=== PATIENT | male | born 1960 | race Caucasian/White ===

== ENCOUNTER 2016-12-26 10:43 | Observation (INO) | payer BC ==
[2016-12-26] MEDS ORDERED: ONDANSETRON 4 MG/2 ML VIAL IVP STA (11:37)
[2016-12-26] MEDS ORDERED: SODIUM CHLORIDE 0.9% 1,000 ML IV STA (11:37)
[2016-12-26] MEDS ORDERED: DICYCLOMINE 10 MG/ML 2 ML AMP IM STA (11:37)
[2016-12-26 11:45] LABS: Basophils % (A) 0 %; CH 29.7; Eosinophils % (A) 0 %; HCT 53.6 % (39.0-53.0); HDW 2.46; HGB 17.6 gm/dL (13.0-17.5); Luc # (Auto) 0.07; Luc % (Auto) 1; Lymphocytes # (A) 0.7 k/uL (1.0-4.8); Lymphocytes % (A) 5 %; MCH 29.8 pg (25.0-35.0); MCHC 32.9 g/dL (31.0-37.0); MCV 90.6 fL (80.0-100.0); Mean Platelet Volume 8.4; Monocytes # (A) 0.5 k/uL (0-1.0); Monocytes % (A) 4 %; Neutrophils # (A) 12.1 k/uL (1.3-7.7); Neutrophils % (A) 91 %; RBC 5.92 m/uL (4.30-5.90); RDW 12.8 % (11.5-15.5); WBC 13.3 k/uL (3.8-10.6); WBC (Perox) 13.95
--- NOTE | 2016-12-26 12:11 | XR ---
Abdomen HISTORY: Nausea vomiting and diarrhea Frontal View of the abdomen on 2 images Postop changes are noted at the gastroesophageal junction. Surgical clips are present in the pelvis. There are likely phleboliths. Air-filled loops of small and large bowel are present. Lung bases are c lear. No pneumoperitoneum. IMPRESSION: Possible ileus or enteritis, follow-up as indicated bowel obstruction is suspected.
[2016-12-26 12:12] LABS: Calcium 11.5 mg/dL (8.4-10.2); Potassium 4.9 mmol/L (3.5-5.1); Total Bilirubin 0.7 mg/dL (0.2-1.3); Total Protein 9.5 g/dL (6.3-8.2)
[2016-12-26] MEDS ORDERED: SODIUM CHLORIDE 0.9% 500 ML IV STA ×2 (12:17→12:33)
[2016-12-26] MEDS ORDERED: ONDANSETRON 4 MG/2 ML VIAL IVP PRN (12:48)
[2016-12-26] MEDS ORDERED: NALOXONE 0.4 MG/ML 1 ML VIAL IV PRN (12:48)
--- NOTE | 2016-12-26 12:48 | ED ---
Nausea/Vomiting/Diarrhea HPI - General Source: EMS, RN notes reviewed Mode of arrival: EMS Limitations: no limitations <Ivy Chiu - Last Filed: 12/26/16 12:43> <Frantz Nelson - Last Filed: 12/26/16 12:53> - General Chief complaint: Nausea/Vomiting/Diarrhea Stated complaint: Flu Symptoms Time Seen by Provider: 12/26/16 11:21 - History of Present Illness Initial comments: 56-year-old male presents to the emergency department with a chief complaint nausea vomiting and diarrhea. Patient has had this since last night. Patient states the symptoms just continue. Patient states he's been unable to keep anything down. Patient states he has been unable to tolerate water. Patient states just continued to have the symptoms that he thought that he should be seen. Patient states when he tried to get up he does notice that he has some lightheadedness as well. Patient states that he was concerned due to his continued nausea vomiting diarrhea so he thought that he should be evaluated. Patient denies any recent fever, chills, shortness of breath, chest pain, back pain, abdominal pain, numbness or tingling, dysuria or hematuria, constipation , headaches or visual changes, or any other current symptoms. (Ivy Chiu) - Related Data Home Medications Medication Instructions Recorded Confirmed Losartan Potassium [Losartan 100 mg PO QAM 05/16/14 12/26/16 Potassium] amLODIPine [Norvasc] 10 mg PO QAM 05/16/14 12/26/16 Ranitidine HCl [Zantac] 75 mg PO BID PRN 12/26/16 12/26/16 Allergies Allergy/AdvReac Type Severity Reaction Status Date / Time cephalexin monohydrate Allergy Nausea & Verified 12/26/16 11:20 [From Keflex] Vomiting ciprofloxacin [From Cipro] Allergy Nausea & Verified 12/26/16 11:20 Vomiting ciprofloxacin HCl Allergy Nausea & Verified 12/26/16 11:20 [From Cipro] Vomiting erythromycin base Allergy Nausea & Verified 12/26/16 11:20 [Erythromycin Base] Vomiting morphine Allergy TREMORS Verified 12/26/16 11:20 Review of Systems ROS Other: All systems not noted in ROS Statement are negative. <Ivy Chiu - Last Filed: 12/26/16 12:43> ROS Other: All systems not noted in ROS Statement are negative. <OmarFrantz - Last Filed: 12/26/16 12:53> ROS Statement: Those systems with pertinent positive or pertinent negative responses have been documented in the HPI. Past Medical History Past Medical History: Cancer, GERD/Reflux, GI Bleed, Hypertension Additional Past Medical History / Comment(s): STOMACH ULCERS (HAD BLOOD TRANSFUSIONS). PROSTATE CA History of Any Multi-Drug Resistant Organisms: None Reported Past Surgical History: Hernia Repair, Orthopedic Surgery, Prostate Surgery Additional Past Surgical History / Comment(s): PROSTATECTOMY. HIATAL HERNIA. JGAJIT IN LEFT FEMUR. Past Anesthesia/Blood Transfusion Reactions: No Reported Reaction Past Psychological History: No Psychological Hx Reported Smoking Status: Never smoker Past Alcohol Use History: Rare Past Drug Use History: None Reported - Past Family History Father Family Medical History: Cancer Additional Family Medical History / Comment(s): SKIN CA, VALVE REPLACEMENT Mother Family Medical History: Cancer Additional Family Medical History / Comment(s): COLON CA <Ivy Chiu - Last Filed: 12/26/16 12:43> General Exam Limitations: no limitations <Ivy Chiu - Last Filed: 12/26/16 12:43> <OmarFrantz - Last Filed: 12/26/16 12:53> - General Exam Comments Initial Comments: General: The patient is awake and alert, in no distress, and does not appear acutely ill. Eye: Pupils are equal, round and reactive to light, extra-ocular movements are intact; there is normal conjunctiva bilaterally. No signs of icterus. Ears, nose, mouth and throat: There are moist mucous membranes and no oral lesions. Neck: The neck is supple, there is no tenderness. Cardiovascular: There is a regular rate and rhythm. No murmur, rub or gallop is appreciated. Respiratory: Lungs are clear to auscultation, respirations are non-labored, breath sounds are equal. No wheezes, stridor, rales, or rhonchi. Gastrointestinal: Soft, non-distended, non-tender abdomen without masses or organomegaly noted. There is no rebound or guarding present. No CVA tenderness. Bowel sounds are unremarkable. Musculoskeletal: Normal ROM, no tenderness, There is no pedal edema. There is no calf tenderness or swelling. Sensation intact. Pulses equal bilaterally 2+. Neurological: CN II-XII intact, There are no obvious motor or sensory deficits. Coordination appears grossly intact. Speech is normal. Skin: Skin is warm and dry and no rashes or lesions are noted. Psychiatric: Cooperative, appropriate mood & affect, normal judgment. (Ivy Chiu) Medical Decision Making - Lab Data Result diagrams: 12/26/16 11:00 12/26/16 11:00 - Radiology Data Radiology results: report reviewed, image reviewed <Ivy Chiu - Last Filed: 12/26/16 12:43> - Lab Data Result diagrams: 12/26/16 11:00 12/26/16 11:00 <Frantz Nelson - Last Filed: 12/26/16 12:53> - Medical Decision Making 56-year-old male presents for nausea vomiting diarrhea. When reviewing the patient's blood work she does appear to have acute kidney injury most likely due to dehydration at this time. Patient is still tachycardic even after a liter of fluids. We'll give the patient another liter. He will admit due to the dehydration and acute kidney injury most likely from a gastroenteritis. This is discussed with the patient and he is in agreement with plan. (Ivy Chiu ) I saw this patient in conjunction with the physician equal opportunity assistant. I performed independent history and physical exam. Agree with case management. (Frantz Nelson) - Lab Data Lab Results 12/26/16 12/26/16 Range/Units 11:00 11:00 WBC 13.3 H (3.8-10.6) k/uL RBC 5.92 H (4.30-5.90) m/uL Hgb 17.6 H (13.0-17.5) gm/dL Hct 53.6 H (39.0-53.0) % MCV 90.6 (80.0-100.0) fL MCH 29.8 (25.0-35.0) pg MCHC 32.9 (31.0-37.0) g/dL RDW 12.8 (11.5-15.5) % Plt Count 351 (150-450) k/uL Neutrophils % 91 % Lymphocytes % 5 % Monocytes % 4 % Eosinophils % 0 % Basophils % 0 % Neutrophils # 12.1 H (1.3-7.7) k/uL Lymphocytes # 0.7 L (1.0-4.8) k/uL Monocytes # 0.5 (0-1.0) k/uL Eosinophils # 0.0 (0-0.7) k/uL Basophils # 0.0 (0-0.2) k/uL Sodium 147 H (137-145) mmol/L Potassium 4.9 (3.5-5.1) mmol/L Chloride 102 (98-107) mmol/L Carbon Dioxide 23 (22-30) mmol/L Anion Gap 22 mmol/L BUN 39 H (9-20) mg/dL Creatinine 2.80 H (0.66-1.25) mg/dL Est GFR (MDRD) Af Amer 28 (>60 ml/min/1.73 sqM) Est GFR (MDRD) Non-Af 23 (>60 ml/min/1.73 sqM) Glucose 182 H (74-99) mg/dL Calcium 11.5 H (8.4-10.2) mg/dL Total Bilirubin 0.7 (0.2-1.3) mg/dL AST 22 (17-59) U/L ALT 42 (21-72) U/L Alkaline Phosphatase 117 (38-126) U/L Total Protein 9.5 H (6.3-8.2) g/dL Albumin 4.8 (3.5-5.0) g/dL Amylase 77 (30-110) U/L Lipase 70 (23-300) U/L Disposition Time of Disposition: 12:47 Decision Date: 12/26/16 Decision Time: 12:47 <Ivy Chiu - Last Filed: 12/26/16 12:43> <Frantz Nelson - Last Filed: 12/26/16 12:53> Clinical Impression: Dehydration, FOREIGN (acute kidney injury), Hypernatremia, Gastroenteritis Disposition: ADMITTED IP TO THIS [facility] Condition: Stable Referrals: Aracelis Cosme III, MD [Primary Care Provider] - 1-2 days
[2016-12-26] MEDS ORDERED: FAMOTIDINE 20 MG TAB PO PRN (12:49)
[2016-12-26 13:54] VITALS: RESP 18
[2016-12-26] MEDS: SODIUM CHLORIDE 0.9% 1,000 ML IV SCH (14:47)
[2016-12-26] MEDS ORDERED: TEMAZEPAM 15 MG CAP PO PRN (20:01)
[2016-12-26] MEDS ORDERED: ALPRAZolam 0.25 MG TAB PO PRN (20:01)
[2016-12-26 20:20] LABS: Prothrombin Time 9.8 sec (9.0-12.0)
[2016-12-26] MEDS ORDERED: FAMOTIDINE 20 MG TAB PO SCH (21:00)
[2016-12-26] MEDS: PANTOPRAZOLE 40 MG/10 ML VIAL IVP SCH (21:02)
[2016-12-26] MEDS: HEPARIN SODIUM,PORCINE 5,000 UNIT/ML 1 ML VIAL SQ SCH (21:02)
[2016-12-26 21:16] LABS: Appearance,Urine Clear (Clear); Bilirubin,Urine Negative (Negative); Glucose,Urine (UA) Negative (Negative); Ketones,Urine Negative (Negative); Leukocyte Esterase,Urine Negative (Negative); Nitrite,Urine Negative (Negative); Protein,Urine Trace (Negative); Specific Gravity,Urine 1.017 (1.001-1.035); UA Billing (MACRO vs. MICRO) CHEM; Urobilinogen,Urine <2.0 mg/dL (<2.0)
[2016-12-27] MEDS: SODIUM CHLORIDE 0.9% 1,000 ML IV SCH ×2 (06:42→09:05)
[2016-12-27 08:14] LABS: Basophils # (A) 0.1 k/uL (0-0.2); Basophils % (A) 1 %; CH 30.3; CHCM 32.9; Eosinophils # (A) 0.7 k/uL (0-0.7); Eosinophils % (A) 5 %; HCT 42.7 % (39.0-53.0); HDW 2.45; Luc # (Auto) 0.23; Luc % (Auto) 2; Lymphocytes # (A) 1.5 k/uL (1.0-4.8); Lymphocytes % (A) 10 %; MCH 30.1 pg (25.0-35.0); MCHC 32.5 g/dL (31.0-37.0); MCV 92.6 fL (80.0-100.0); Mean Platelet Volume 8.8; Monocytes # (A) 0.9 k/uL (0-1.0); Monocytes % (A) 6 %; Neutrophils % (A) 77 %; RBC 4.61 m/uL (4.30-5.90); WBC 14.3 k/uL (3.8-10.6); WBC (Perox) 14.69
[2016-12-27 08:16] LABS: HGB 13.9 gm/dL (13.0-17.5)
[2016-12-27 08:30] LABS: ALT 37 U/L (21-72); AST 18 U/L (17-59); Alkaline Phosphatase 78 U/L (38-126); Anion Gap 9 mmol/L; Blood Urea Nitrogen 26 mg/dL (9-20); Calcium 8.8 mg/dL (8.4-10.2); Carbon Dioxide 25 mmol/L (22-30); Chloride 111 mmol/L (98-107); Glucose 97 mg/dL (74-99); Non-African American GFR(MDRD) >60 (>60 ml/min/1.73 sqM); Potassium 4.2 mmol/L (3.5-5.1); Sodium 145 mmol/L (137-145); Total Bilirubin 0.7 mg/dL (0.2-1.3); Total Protein 6.8 g/dL (6.3-8.2)
[2016-12-27] MEDS: HEPARIN SODIUM,PORCINE 5,000 UNIT/ML 1 ML VIAL SQ SCH (09:00)
[2016-12-27] MEDS ORDERED: LOSARTAN 50 MG TAB PO SCH (09:00)
[2016-12-27] MEDS: PANTOPRAZOLE 40 MG/10 ML VIAL IVP SCH (09:00)
[2016-12-27] MEDS ORDERED: amLODIPine 10 MG TAB PO SCH (09:00)
--- NOTE | 2016-12-27 10:26 | HP ---
DATE OF ADMISSION: DATE OF SERVICE: 12/26/2016 Chief complaints are nausea, vomiting, diarrhea. HISTORY OF PRESENT ILLNESS: This 56-year-old gentleman with a past medical history of multiple medical problems, atrial fibrillation, history of GERD, history of GI bleed, hypertension, history of stomach ulcers, history of transfusions, hernia repair being followed by Dr. Cosme in the outpatient setting, was not feeling well since today, this morning. The patient nausea, vomiting and multiple episodes of diarrhea. Patient was so weak, patient had multiple episodes of vomiting, patient is unable to keep anything down. Patient unable to tolerate even water. Patient came to [facility], admitted for further evaluation and treatment. Admission evaluated showed a white count of 13.3 and hemoglobin of 17.6, sodium 146 and creatinine was 2.80. The baseline creatinine was 0.8 previously. There is no history of fever, rigors, chills. No history of headaches, loss of consciousness, or seizures. A viral syndrome is also considered. Patient not on antibiotics recently. Calcium is 7.5. PAST MEDICAL HISTORY: History of atrial fibrillation, history of GERD, history of GI bleed, history of stomach ulcers, history of hernia repair, history of degenerative joint disease, history of prostate surgery and prostatectomy. Medications prior to admission include home medications: 1. Norvasc 10 mg q.a.m. 2. Zantac 75 mg p.o. b.i.d. 3. Losartan 100 mg q.a.m. Allergies are KEFLEX, CIPRO, ERYTHROMYCIN, MORPHINE. FAMILY HISTORY: History of cancer, skin cancer and valve replacement. SOCIAL HISTORY: No history of smoking, occasional alcohol intake. REVIEW OF SYSTEMS: ENT: No diminished hearing. No diminished vision. CARDIOVASCULAR SYSTEMS: No angina or palpitations. RESPIRATORY: No cough. GI: As mentioned earlier. : No dysuria. NERVOUS SYSTEM: No numbness or weakness. ALLERGY/IMMUNOLOGY: No asthma or hayfever. MUSCULOSKELETAL: As mentioned earlier. HEMATOLOGY/ONCOLOGY: No history of anemia. ENDOCRINE: No history of diabetes or hypothyroidism. CONSTITUTIONAL: As mentioned earlier. DERMATOLOGY: Negative. RHEUMATOLOGY: Negative. PSYCHIATRY: As mentioned earlier. PHYSICAL EXAM: The patient is alert and oriented x3. Pulse is 120, blood pressure 132/91, respirations 18, temperature is 98.2, pulse ox 94% on room air. HEENT: Conjunctivae normal, oral mucosa moist. NECK: No jugular venous distension, no carotid bruit, no lymph node enlargement. CARDIOVASCULAR: S1, S2, muffled, no S3, no S4. RESPIRATORY: Breath sounds diminished at the bases, a few scattered rhonchi, no crackles. Abdomen is soft. Mild diffuse discomfort, no guarding, no rigidity, no mass palpable. EXTREMITIES: Legs no edema, no swelling. NERVOUS SYSTEM: Higher functions as mentioned, moves all 4 limbs, no focal motor or sensory deficits. LYMPHATICS: No lymph node enlargement in the neck, axilla or groin. SKIN: No ulcers, rash or bleeding. Labs are WBC 13.3, hemoglobin is 17.6, sodium 147, creatinine 2.80, calcium 11.5. ASSESSMENT: 1. Nausea, vomiting and diarrhea, possible acute viral syndrome and viral gastroenteritis. 2. Acute renal failure, possible prerenal, secondary to dehydration and acute tubular necrosis. 3. Hyponatremia, secondary to dehydration. 4. Hypocalcemia secondary to dehydration. 5. Increased WBC. 6. Increased hemoglobin. 7. History of atrial fibrillation. 8. History of gastroesophageal reflux disease. 9. History of gastrointestinal bleed. 10. History of hypertension. 11. History of stomach ulcers and transfusion. 12. History of prostate cancer and prostatectomy. 13. History of cardioversion for atrial fibrillation. RECOMMENDATION AND DISCUSSION: In this 56-year-old gentleman who presented with multiple complex medical issues, will monitor the patient closely. Continue with the current medication and symptomatic treatment. Will initiate IV fluids and consider line of management. Otherwise, would keep the patient n.p.o. Will check stool C. diff and as well as norovirus, isolation until the diarrhea better. Influenza has been checked. Prognosis guarded because of multiple complex medical issues. Will also check influenza as well. Guarded prognosis. Further recommendations to follow. A copy of dictation will be forwarded to Dr. Cosme who is the primary care physician.
[2016-12-27 14:56] VITALS: BMI 29.0
[2016-12-27 15:29] VITALS: BP 121/80; PULSE 99; TEMP 98.3
--- NOTE | 2016-12-28 10:23 | DS ---
DATE OF ADMISSION: 12/26/2016 DATE OF DISCHARGE: 12/27/2016 FINAL DIAGNOSES: 1. Nausea, with diarrhea, possibly acute viral syndrome and viral gastroenteritis, improving. 2. Acute renal failure, possible prerenal, secondary to dehydration as well as acute tubular necrosis. 3. Hyponatremia secondary to dehydration and hypovolemic. 4. Hypercalcemia secondary to dehydration. 5. Increased WBC. 6. Increased hemoglobin, possibly secondary to dehydration. 7. History of atrial fibrillation. 8. History of gastroesophageal reflux disease. 9. History of gastrointestinal bleed. 10. Hypertension. 11. History of stomach ulcers and transfusion. 12. History of prostate cancer and prostatectomy. 13. History of cardioversion for atrial fibrillation. DISCHARGE DISPOSITION: Patient will be discharged in a stable condition with guarded prognosis. HISTORY OF PRESENT ILLNESS: This is a 56-year-old gentleman with a past medical history of multiple medical problems, was admitted with nausea and diarrhea and features of possible viral gastroenteritis. The influenza is negative and C. diff is also negative. Patient was treated symptomatically. Creatinine improved from 2.8 to 1.02 with IV fluids. White count is 14.3. Cultures are negative so far. The patient is keen on going home. On exam, vitals are stable. CARDIOVASCULAR SYSTEM: S1, S2, muffled. Abdomen is soft. NERVOUS SYSTEM: No focal deficits. DISCHARGE ADVICE: 1. Diet is soft as tolerated. 2. Otherwise activity limited until followup. 3. Follow up with Dr. Cosme in 2 to 3 days with CBC, BMP. Medications are: 1. Tylenol 500 mg q.6 p.r.n. 2. Losartan 100 mg p.o. q.a.m. 3. Zantac 75 mg p.o. b.i.d. 4. Norvasc 10 mg p.o. q.a.m. Once again, the patient will be discharged in a stable condition with guarded prognosis.
== END 2016-12-27 16:20 | disposition home or self-care (01) ==
LOC: EC 10:43 → 5MS5E 12:52 → INTOOBSV 12:52
PROVIDERS: ADMIT Internal Medicine; ATTEND Internal Medicine
DX: R11.2 Nausea with vomiting, unspecified (principal); R19.7 Diarrhea, unspecified; E86.0 Dehydration; E86.1 Hypovolemia; N17.0 Acute kidney failure with tubular necrosis; E87.0 Hyperosmolality and hypernatremia; E87.1 Hypo-osmolality and hyponatremia; E83.51 Hypocalcemia; E83.52 Hypercalcemia; I10 Essential (primary) hypertension; D72.829 Elevated white blood cell count, unspecified; D58.2 Other hemoglobinopathies; I48.91 Unspecified atrial fibrillation; K21.9 Gastro-esophageal reflux disease without esophagitis; Z85.46 Personal history of malignant neoplasm of prostate; Z88.5 Allergy status to narcotic agent; Z88.1 Allergy status to other antibiotic agents; Z79.899 Other long term (current) drug therapy; Z87.11 Personal history of peptic ulcer disease; Z80.0 Family history of malignant neoplasm of digestive organs
CPT/HCPCS: 99285; 96372; 96374; 96361; 36415; 80053 ×2; 82150; 83690; 83735; 85025 ×2; 85610; 81003; 80306; 80299; 87502; 74000; G0378 ×2; J0500; J1644 ×2; J2405; C9113 ×2; 87324; 96375; 96376

== ENCOUNTER → 2020-03-31 | Outpatient (CLI) | payer BC | END | disposition home or self-care (01) | LOC: LABWHC1 10:43 | PROVIDERS: ATTEND Surgery | DX: Z11.59 Encounter for screening for other viral diseases (principal) | CPT/HCPCS: 87635 ==

== ENCOUNTER → 2020-04-03 | Day surgery (SDC) | payer BC ==
[2020-04-01 09:05] VITALS: BMI 30.6
[~2020-04-03] MED LIST: LACTATED RINGERS 1,000 ML IV SCH; LIDOCAINE 1% (10MG/ML) FOR IV START INTRADERMA ONE; METOPROLOL TARTRATE 50 MG TAB PO STA
[2020-04-03 08:25] VITALS: RESP 16; TEMP 97
[2020-04-03 10:50] LABS: African American GFR (CKD) >90 (>60 ml/min/1.73 sqM); Anion Gap 10 mmol/L; Blood Urea Nitrogen 19 mg/dL (9-20); Calcium 9.5 mg/dL (8.4-10.2); Carbon Dioxide 24 mmol/L (22-30); Chloride 105 mmol/L (98-107); Glucose 106 mg/dL (74-99); Non-African American GFR(CKD) 87 (>60 ml/min/1.73 sqM); Potassium 3.8 mmol/L (3.5-5.1); Sodium 139 mmol/L (137-145)
[2020-04-03 10:55] VITALS: BP 120/78; PULSE 105
--- NOTE | 2020-04-03 12:32 | P.CRDCN ---
History of Present Illness History of present illness: Please see full dictation by nurse practitioner Patient admitted for colonoscopy and was found to be in A. fib with RVR Patient evaluated with nurse practitioner Impression Atrial fibrillation with RVR, narrow QRS Mildly enlarged RA and RV without tricuspid regurgitation History of hypertension on combination of amlodipine and losartan Elevated LDL, not on any medications Denies diabetes smoking or any significant alcohol use ELISABET VASC core at this time appears to be 1 LV function is normal Suggest Rate controlled with metoprolol succinate 50 g by mouth daily in the morning Continue antihypertensives in the evening ELIQUIS 5 mg twice daily for now until further evaluation of atrial fibrillation Future plan electrical cardioversion to see there is any improvement in his symptoms His main symptom is he gets tired when he climbs 12 flights of stairs, mildly short of breath Denies any palpitations Past Medical History Past Medical History: Atrial Fibrillation, Cancer, GERD/Reflux, GI Bleed, Hyperlipidemia, Hypertension, Prostate Disorder Additional Past Medical History / Comment(s): hx hiatal hernia, STOMACH ULCERS, hx PROSTATE cancer, varicose veins bilaterally, hx anemia, History of Any Multi-Drug Resistant Organisms: None Reported Past Surgical History: Hernia Repair, Orthopedic Surgery, Prostate Surgery Additional Past Surgical History / Comment(s): PROSTATECTOMY, HIATAL HERNIA repair, titanium JAGJIT/screws IN LEFT FEMUR-, JAM/CARDIOVERSION, Past Anesthesia/Blood Transfusion Reactions: No Reported Reaction Additional Past Anesthesia/Blood Transfusion Reaction / Comment(s): Pt has received blood in the past without reaction. Smoking Status: Never smoker - Past Family History Father Family Medical History: Cancer Additional Family Medical History / Comment(s): SKIN CA, VALVE REPLACEMENT Mother Family Medical History: Cancer Additional Family Medical History / Comment(s): COLON CA. Medications and Allergies Home Medications Medication Instructions Recorded Confirmed Type Losartan Potassium 100 mg PO QAM 05/16/14 04/03/20 History amLODIPine [Norvasc] 10 mg PO QAM 05/16/14 04/03/20 History Apixaban [Eliquis] 5 mg PO BID #60 tab 04/03/20 Rx Metoprolol Succinate (ER) [Toprol 50 mg PO DAILY #90 tab 04/03/20 Rx Xl] Allergies Allergy/AdvReac Type Severity Reaction Status Date / Time cephalexin monohydrate Allergy Nausea & Verified 04/03/20 08:12 [From Keflex] Vomiting ciprofloxacin [From Cipro] Allergy Nausea & Verified 04/03/20 08:12 Vomiting ciprofloxacin HCl Allergy Nausea & Verified 04/03/20 08:12 [From Cipro] Vomiting erythromycin base Allergy Nausea & Verified 04/03/20 08:12 [Erythromycin Base] Vomiting morphine Allergy TREMORS Verified 04/03/20 08:12 Physical Exam Vitals: Vital Signs Temp Pulse Resp BP Pulse Ox 04/03/20 10:50 105 H 16 120/78 96 04/03/20 08:15 97 F L 106 H 16 142/97 95 Intake and Output 04/02/20 04/03/20 04/03/20 22:59 06:59 14:59 Intake Total 400 Balance 400 Intake: IV 400 Other: Weight 108 kg Results 04/03/20 10:26 Comprehensive Metabolic Panel 04/03/20 Range/Units 10:26 Sodium 139 (137-145) mmol/L Potassium 3.8 (3.5-5.1) mmol/L Chloride 105 (98-107) mmol/L Carbon Dioxide 24 (22-30) mmol/L BUN 19 (9-20) mg/dL Creatinine 0.95 (0.66-1.25) mg/dL Glucose 106 H (74-99) mg/dL Calcium 9.5 (8.4-10.2) mg/dL Current Medications Generic Name Dose Route Start Last Admin Trade Name Freq PRN Reason Stop Dose Admin Lactated Ringer's 1,000 mls @ 20 mls/hr 04/03/20 05:39 04/03/20 08:26 Lactated Ringers IV 400 mls .Q24H ROBERT Administration Intake and Output 04/02/20 04/03/20 04/03/20 22:59 06:59 14:59 Intake Total 400 Balance 400 Intake: IV 400 Other: Weight 108 kg Patient Weight 04/04/20 06:59 Weight 108 kg 04/03/20 10:26
--- NOTE | 2020-04-03 12:35 | ECHOF ---
Referral Reason:afib MEASUREMENTS -------- HEIGHT: 190.5 cm WEIGHT: 108.0 kg BP: 142/97 IVSd: 1.2 cm (0.6 - 1.1) LVIDd: 3.6 cm (3.9 - 5.3) LVPWd: 1.3 cm (0.6 - 1.1) IVSs: 1.4 cm LVIDs: 2.9 cm LVPWs: 1.8 cm RVIDd: 4.2 cm (< 3.3) LAESV Index (A-L): 30.67 ml/m Ao Diam: 3.0 cm (2.0 - 3.7) AV Cusp: 1.6 cm (1.5 - 2.6) EPSS: 0.9 cm AR PHT: 519 ms RAP: 5.00 mmHg RVSP: 15.73 mmHg MV EF SLOPE: 46.16 mm/s (70 - 150) MV EXCURSION: 19.13 mm (> 18.000) FINDINGS -------- Atrial fibrillation. This was a technically adequate study. The left ventricular size is normal. There is mild concentric left ventricular hypertrophy. Overa ll left ventricular systolic function is low-normal with, an EF between 50 - 55 %. Left ventricular fillimg pressure cannot be estimated due to Atrial fibrillation. The right ventricle is mild to moderately enlarged. LA is midly dilated 29-33ml/m2. The right atrium is mildly enlarged. Interatrial and interventricular septum intact. There is mild aortic regurgitation. There is no evidence of aortic stenosis. There is trace mitral regurgitation. Mild tricuspid regurgitation present. There is no evidence of pulmonary hypertension. The right v entricular systolic pressure, as measured by Doppler, is 15.73mmHg. There is no pulmonic regurgitation present. The aortic root size is normal. IVC Not well visulized. CONCLUSIONS -------- 1. Atrial fibrillation. 2. This was a technically adequate study. 3. The left ventricular size is normal. 4. There is mild concentric left ventricular hypertrophy. 5. Overall left ventricular systolic function is low-normal with, an EF between 50 - 55 %. 6. Left ventricular fillimg pressure cannot be estimated due to Atrial fibrillation. 7. The right ventricle is mild to moderately enlarged. 8. LA is midly dilated 29-33ml/m2. 9. The right atrium is mildly enlarged. 10. Interatrial and interventricular septum intact. 11. There is mild aortic regurgitation. 12. There is no evidence of aortic stenosis. 13. There is trace mitral regurgitation. 14. Mild tricuspid regurgitation present. 15. There is no evidence of pulmonary hypertension. 16. The right ventricular systolic pressure, as measured by Doppler, is 15.73mmHg. 17. There is no pulmonic regurgitation present. 18. The aortic root size is normal. 19. IVC Not well visulized. GUARD LIEUTENANT: Chela Garcia RDCS
--- NOTE | 2020-04-03 15:15 | P.CRDCN ---
History of Present Illness History of present illness: HISTORY OF PRESENTING ILLNESS This is a pleasant 59-year-old male past medical history significant for paroxysmal atrial fibrillation, hypertension and dyslipidemia. In 2013 he underwent JAM cardioversion with Dr. Garcia. His initial cardioversion was successful however he did not follow-up in the office thereafter. We have been asked to evaluate him in the preoperative area. He came into the hospital to undergo colonoscopy with Dr. Coto. On arrival EKG was obtained revealing atrial fibrillation with rapid ventricular rates. His heart rate was fluctuating between 110 and 120. He denies symptoms of palpitations, chest pain, dizziness or shortness of breath. He states in 2014 he was asymptomatic with his A. fib is well. He states typically he has no symptoms of exertional chest discomfort however if he goes up more than 2 flights of stairs he becomes mildly short of breath. Current daily cardiac medications include amlodipine 10 mg daily and losartan 100 mg daily. REVIEW OF SYSTEMS At the time of my exam: CONSTITUTIONAL: Denies fever or chills. CARDIOVASCULAR: Denies chest pain, shortness of breath, orthopnea, PND or palpitations. RESPIRATORY: Denies cough. GASTROINTESTINAL: Denies abdominal pain, diarrhea, constipation, nausea or vomiting. MUSCULOSKELETAL: Denies myalgias. NEUROLOGIC: Denies numbness, tingling or weakness. ENDOCRINE: Denies fatigue, weight change, polydipsia or polyurina. GENITOURINARY: Denies burning, hematuria or urgency with micturation. HEMATOLOGIC: Denies history of anemia or bleeding. PHYSICAL EXAMINATION Blood pressure 120/78 heart rate 105 afebrile and maintaining oxygen saturation on room air. CONSTITUTIONAL: No apparent distress. HEENT: Head is normocephalic. Pupils are equal, round. Sclerae anicteric. Mucous membranes of the mouth are moist. No JVD. No carotid bruit. CHEST EXAMINATION: Lungs are clear to auscultation. No chest wall tenderness is noted on palpation or with deep breathing. HEART EXAMINATION: Irregular rate and rhythm. S1, S2 heard. No murmurs, gallops or rub. ABDOMEN: Soft, nontender. Positive bowel sounds. EXTREMITIES: 2+ peripheral pulses, no lower extremity edema and no calf tende rness. NEUROLOGIC EXAMINATION: Patient is awake, alert and oriented x3. ASSESSMENT Paroxysmal atrial fibrillation Hypertension PLAN Initiate toprol 50 mg daily and advised him to take his anti-hypertensives at bedtime. Initiate eliquis 5 mg BID for thromboembolic protection for possible cardiove rsion in the near future. Obtain 2D echocardiogram and doppler study to assess cardiac structure and function. Follow-up in the office with Dr. Watt in 2-3 weeks. Thank you kindly for this consultation. Nurse Practitioner note has been reviewed, I agree with a documented findings and plan of care. Patient was seen and examined. Past Medical History Past Medical History: Atrial Fibrillation, Cancer, GERD/Reflux, GI Bleed, Hyperlipidemia, Hypertension, Prostate Disorder Additional Past Medical History / Comment(s): hx hiatal hernia, STOMACH ULCERS, hx PROSTATE cancer, varicose veins bilaterally, hx anemia, History of Any Multi-Drug Resistant Organisms: None Reported Past Surgical History: Hernia Repair, Orthopedic Surgery, Prostate Surgery Additional Past Surgical History / Comment(s): PROSTATECTOMY, HIATAL HERNIA repair, titanium JAGJIT/screws IN LEFT FEMUR-, JAM/CARDIOVERSION, Past Anesthesia/Blood Transfusion Reactions: No Reported Reaction Additional Past Anesthesia/Blood Transfusion Reaction / Comment(s): Pt has received blood in the past without reaction. Smoking Status: Never smoker - Past Family History Father Family Medical History: Cancer Additional Family Medical History / Comment(s): SKIN CA, VALVE REPLACEMENT Mother Family Medical History: Cancer Additional Family Medical History / Comment(s): COLON CA. Medications and Allergies Home Medications Medication Instructions Recorded Confirmed Type Losartan Potassium 100 mg PO QAM 05/16/14 04/03/20 History amLODIPine [Norvasc] 10 mg PO QAM 05/16/14 04/03/20 History Apixaban [Eliquis] 5 mg PO BID #60 tab 04/03/20 Rx Metoprolol Succinate (ER) [Toprol 50 mg PO DAILY #90 tab 04/03/20 Rx Xl] Allergies Allergy/AdvReac Type Severity Reaction Status Date / Time cephalexin monohydrate Allergy Nausea & Verified 04/03/20 08:12 [From Keflex] Vomiting ciprofloxacin [From Cipro] Allergy Nausea & Verified 04/03/20 08:12 Vomiting ciprofloxacin HCl Allergy Nausea & Verified 04/03/20 08:12 [From Cipro] Vomiting erythromycin base Allergy Nausea & Verified 04/03/20 08:12 [Erythromycin Base] Vomiting morphine Allergy TREMORS Verified 04/03/20 08:12 Physical Exam Vitals: Vital Signs Temp Pulse Resp BP Pulse Ox 05/29/20 08:15 97 F L 106 H 16 142/97 95 Intake and Output 04/02/20 04/03/20 04/03/20 22:59 06:59 14:59 Other: Weight 108 kg Results 04/03/20 10:26 Current Medications Generic Name Dose Route Start Last Admin Trade Name Freq PRN Reason Stop Dose Admin Lactated Ringer's 1,000 mls @ 20 mls/hr 04/03/20 05:39 04/03/20 08:26 Lactated Ringers IV 0 mls .Q24H ROBERT Administration Intake and Output 04/02/20 04/03/20 04/03/20 22:59 06:59 14:59 Other: Weight 108 kg Patient Weight 04/04/20 06:59 Weight 108 kg
== END ==
LOC: ORWHC2ENDO 07:57
PROVIDERS: ATTEND Surgery
DX: I48.0 Paroxysmal atrial fibrillation (principal); I10 Essential (primary) hypertension; I83.90 Asymptomatic varicose veins of unspecified lower extremity; E78.5 Hyperlipidemia, unspecified; K21.9 Gastro-esophageal reflux disease without esophagitis; D64.9 Anemia, unspecified; Z87.11 Personal history of peptic ulcer disease; Z87.19 Personal history of other diseases of the digestive system; Z85.46 Personal history of malignant neoplasm of prostate; Z98.890 Other specified postprocedural states; Z79.01 Long term (current) use of anticoagulants; Z79.899 Other long term (current) drug therapy; Z88.1 Allergy status to other antibiotic agents; Z86.73 Personal history of transient ischemic attack (TIA), and cerebral infarction without residual deficits; Z88.5 Allergy status to narcotic agent; Z80.8 Family history of malignant neoplasm of other organs or systems; Z82.49 Family history of ischemic heart disease and other diseases of the circulatory system; Z80.0 Family history of malignant neoplasm of digestive organs
CPT/HCPCS: 80048; 93306

== ENCOUNTER → 2022-07-08 | Outpatient (CLI) | payer BC | END | disposition home or self-care (01) | LOC: LABWHC1 09:00 | PROVIDERS: ATTEND Urology | DX: C61 Malignant neoplasm of prostate (principal) | CPT/HCPCS: 36415; 84153 ==

== ENCOUNTER → 2022-09-16 | Outpatient (CLI) | payer BC | END | disposition home or self-care (01) | LOC: LABWHC1 10:03 | PROVIDERS: ATTEND Urology | DX: C61 Malignant neoplasm of prostate (principal) | CPT/HCPCS: 36415; 84153 ==

== ENCOUNTER → 2023-04-04 | Outpatient (CLI) | payer BC | END | disposition home or self-care (01) | LOC: LABWHC1 08:16 | PROVIDERS: ATTEND Urology | DX: C61 Malignant neoplasm of prostate (principal) | CPT/HCPCS: 36415; 84153 ==

== ENCOUNTER → 2023-10-06 | Outpatient (CLI) | payer BC | END | disposition home or self-care (01) | LOC: LABWHC1 08:01 | PROVIDERS: ATTEND Urology | DX: C61 Malignant neoplasm of prostate (principal) | CPT/HCPCS: 36415; 84153 ==

== ENCOUNTER → 2024-04-18 | Outpatient (CLI) | payer BC | END | disposition home or self-care (01) | LOC: LABWHC1 09:14 | PROVIDERS: ATTEND Urology | DX: C61 Malignant neoplasm of prostate (principal) | CPT/HCPCS: 36415; 84153 ==

== ENCOUNTER → 2024-08-19 | Outpatient (CLI) | payer BC | END | disposition home or self-care (01) | LOC: LABWHC1 12:29 | PROVIDERS: ATTEND Urology | DX: C61 Malignant neoplasm of prostate (principal) | CPT/HCPCS: 36415; 84153 ==

== ENCOUNTER → 2024-09-23 | Outpatient (CLI) | payer MEDICARE ==
[2024-09-23 10:13] LABS: Basophils # (A) 0.05 X 10*3/uL (0.00-0.10); Basophils % (A) 0.5 %; Eosinophils # (A) 0.46 X 10*3/uL (0.04-0.35); Eosinophils % (A) 4.9 %; HCT 44.5 % (39.6-50.0); HGB 14.2 g/dL (13.0-17.0); Lymphocytes # (A) 1.27 X 10*3/uL (0.90-5.00); Lymphocytes % (A) 13.6 %; MCH 28.6 pg (27.0-32.0); MCHC 31.9 g/dL (32.0-37.0); MCV 89.7 FL (80.0-97.0); Mean Platelet Volume 11.9 FL (9.5-12.2); Monocytes # (A) 0.86 X 10*3/uL (0.20-1.00); Monocytes % (A) 9.2 %; NRBC Per 100 WBC 0 X 10*3/uL (0.00-0.01); Neutrophils # (A) 6.68 X 10*3/uL (1.80-7.70); Neutrophils % (A) 71.6 %; Platelet Count 258 X 10*3/uL (140-440); RBC 4.96 X 10*6/uL (4.40-5.60); RDW 13.2 % (11.5-14.5); WBC 9.34 X 10*3/uL (4.50-10.00)
[2024-09-23 10:47] LABS: ALT 20 U/L (10-49); AST 16 U/L (14-35); Albumin 4.1 g/dL (3.8-4.9); Albumin/Globulin Ratio 1.32 Ratio (1.60-3.17); Alkaline Phosphatase 90 U/L (41-126); Blood Urea Nitrogen 16.4 mg/dL (9.0-27.0); Calcium 9.5 mg/dL (8.7-10.3); Carbon Dioxide 27.7 mmol/L (21.6-31.8); Chloride 105 mmol/L (96-109); Globulin 3.1 g/dL (1.6-3.3); Glucose 94 mg/dL (70-110); PSA Annual Screen 0.393 ng/mL (0.000-4.000); Potassium 4.4 mmol/L (3.5-5.5); Sodium 142 mmol/L (135-145); Total Bilirubin 0.5 mg/dL (0.3-1.2); Total Protein 7.2 g/dL (6.2-8.2)
== END | disposition home or self-care (01) ==
LOC: LABWHC1 07:18
PROVIDERS: ATTEND Family Medicine
DX: I10 Essential (primary) hypertension (principal); E55.9 Vitamin D deficiency, unspecified; Z12.5 Encounter for screening for malignant neoplasm of prostate
CPT/HCPCS: 80053; 84443; 85025; 82306; 36415; G0103

== ENCOUNTER → 2024-12-27 | Outpatient (CLI) | payer MEDICARE, OTHER | END | disposition home or self-care (01) | LOC: LABWHC1 10:46 | PROVIDERS: ATTEND Urology | DX: C61 Malignant neoplasm of prostate (principal) | CPT/HCPCS: 36415; 84153 ==